=== PATIENT | female | born 1985 | race Caucasian/White ===

== ENCOUNTER 2017-08-17 02:45 | Emergency (ER) | payer SELFPAY ==
[~2017-08-17] VITALS: Ht 152.4 cm; Wt 65.8 kg
[2017-08-17 03:06] VITALS: BP 116/82
--- NOTE | 2017-08-17 03:26 | NUR ---
PATIENT TO ER OF4
[2017-08-17] MEDS ORDERED: MORPHINE SULFATE 4 MG/ML SYR IVP ONE (03:35)
[2017-08-17] MEDS ORDERED: NACL 0.9% 1,000 ML IV ONE (03:35)
[2017-08-17] MEDS ORDERED: ONDANSETRON 4 MG/2 ML VIAL IVP ONE (03:35)
--- NOTE | 2017-08-17 03:40 | NUR ---
32 Y/O F W/C/O EPIGASTRIC PAIN AND NAUSEA X 6 HRS. MED HX APPENDECTOMY.
--- NOTE | 2017-08-17 03:45 | NUR ---
PATIENT BEING EVALUATED BY DR. LANDEROS.
[2017-08-17 03:56] LABS: BASOPHILS # (AUTO) 0.3 K/uL (0.00-0.22); BASOPHILS % (AUTO) 1.9 % (0.0-2.0); EOSINOPHILS # (AUTO) 0.2 K/uL (0-0.4); EOSINOPHILS % (AUTO) 1.2 % (0.0-4.0); HEMATOCRIT 38.5 % (36-48); HEMOGLOBIN 12.6 g/dL (12.0-16.0); LYMPHOCYTES # (AUTO) 1.5 K/uL (2.5-16.5); LYMPHOCYTES % (AUTO) 11.1 % (20.5-51.1); MEAN CORPUSCULAR HEMOGLOBIN 28 pg (27-31); MEAN CORPUSCULAR HGB CONC 33 g/dL (33-37); MEAN CORPUSCULAR VOLUME 86 fL (80-94); MONOCYTES # (AUTO) 0.8 K/uL (0.8-1.0); MONOCYTES % (AUTO) 5.7 % (1.7-9.3); NEUTROPHILS # (AUTO) 10.7 K/uL (1.8-7.7); NEUTROPHILS % (AUTO) 80.1 % (42.2-75.2); PLATELET COUNT (AUTO) 610 K/uL (140-450); RED CELL DISTRIBUTION WIDTH 12.9 % (11.6-13.7); WHITE BLOOD COUNT (AUTO) 13.5 K/uL (4.8-10.8)
--- NOTE | 2017-08-17 03:56 | NUR ---
PATIENT MOVED TO ER BED 5
[2017-08-17 04:07] LABS: ANION GAP 9.9 (8-16); CARBON DIOXIDE 28.9 mmol/L (21-32); CREATININE 0.7 mg/dL (0.6-1.3); POTASSIUM 3.8 mmol/L (3.5-5.1)
[2017-08-17 04:13] LABS: ALBUMIN 3.9 g/dL (3.4-5.0); TOTAL BILIRUBIN 0.1 mg/dL (0.0-1.0)
--- NOTE | 2017-08-17 05:00 | NUR ---
TAKE PT. TO CT
--- NOTE | 2017-08-17 05:19 | NUR ---
PT. BACK FROM CT.
--- NOTE | 2017-08-17 06:30 | NUR ---
Patient discharged with v/s stable. Written and verbal after care instructions given and explained. Patient alert, oriented and verbalized understanding of instructions. Ambulatory with steady gait. All questions addressed prior to discharge. ID band removed. Patient advised to follow up with PMD. Rx of PEPSID 20 MG given. Patient educated on indication of medication including possible reaction and side effects. Opportunity to ask questions provided and answered.
[2017-08-17 06:35] VITALS: BP 100/60
== END 2017-08-17 06:30 | disposition home or self-care (01) ==
LOC: MED 02:45
DX: K80.80 Other cholelithiasis without obstruction (principal); Z90.89 Acquired absence of other organs
CPT/HCPCS: 36415; 74176; 80053; 81025; 85025; 96361; 96374; 96375; 99285; J2270; J2405; J7030

== ENCOUNTER 2022-02-22 23:52 | Emergency (ER) | payer OTHER ==
[~2022-02-22] VITALS: Ht 160 cm; Wt 66.2 kg
[2022-02-22 23:57] VITALS: BP 122/76
[2022-02-23] MEDS ORDERED: KETOROLAC 60 MG/2 ML VIAL IM ONE
[2022-02-23] MEDS ORDERED: cefTRIAXone 1,000 MG in LIDOCAINE MPF 1% 2.1 ML IM ONE ×2
[2022-02-23] MEDS ORDERED: LIDOCAINE MPF 1% 5 ML ONE (00:13)
[2022-02-23] MEDS ORDERED: cefTRIAXone 1,000 MG VIAL ONE (00:13)
[2022-02-23 00:24] LABS: APPEARANCE,URINE CLOUDY (CLEAR); BILIRUBIN,URINE NEGATIVE (NEGATIVE); BLOOD, URINE 3+ (NEGATIVE); COLOR,URINE YELLOW (YELLOW); LEUKOCYTE ESTERASE ,URINE 2+ (NEGATIVE); NITRITE, URINE NEGATIVE (NEGATIVE); UGLUCOSE NEGATIVE (NEGATIVE)
[2022-02-23 00:34] LABS: RBC,URINE 0-5 /HPF (0-5); WBC,URINE TOO MANY TO COUNT /HPF (0-5)
[2022-02-23] MEDS ORDERED: NITR100C7 PO (01:10)
[2022-02-23] MEDS ORDERED: NAPR-54 PO (01:10)
[2022-02-23 01:16] VITALS: BP 122/76
== END 2022-02-23 01:16 | disposition home or self-care (01) ==
LOC: MED 23:52
DX: N39.0 Urinary tract infection, site not specified (principal); M54.50 Low back pain, unspecified; Z79.1 Long term (current) use of non-steroidal anti-inflammatories (NSAID); Z79.2 Long term (current) use of antibiotics
CPT/HCPCS: 81001; 81025; 87086; 96372; 99284; J0696; J1885; J2001; 81002